=== PATIENT | female | born 1995 | race Caucasian/White ===

== ENCOUNTER 2017-08-13 00:31 | Emergency (ER) | END 2017-08-13 01:30 | disposition home or self-care (01) ==

== ENCOUNTER 2017-09-26 13:42 | Emergency (ER) | END 2017-09-26 14:10 | disposition home or self-care (01) ==

== ENCOUNTER 2017-11-02 14:41 | Outpatient (CLI) | END 2017-11-02 17:05 | disposition home or self-care (01) ==

== ENCOUNTER 2017-12-21 07:29 | Outpatient (CLI) | END 2017-12-21 10:19 | disposition home or self-care (01) ==

== ENCOUNTER 2018-01-23 08:55 | Inpatient (IN) | END 2018-01-26 12:50 | disposition home or self-care (01) | DRG 766 ==

== ENCOUNTER 2018-02-05 23:31 | Emergency (ER) | END 2018-02-06 04:41 | disposition home or self-care (01) ==

== ENCOUNTER 2018-10-16 07:30 | Emergency (ER) | payer OTHER ==
[~2018-10-16] VITALS: Ht 149.9 cm; Wt 83.6 kg
[~2018-10-16 07:30] MED LIST: CEPH-443 PO; PREN1TAB79 PO
[2018-10-16 07:33] VITALS: BP 124/69; PULSE 80; RESP 18; Ht 149.9 cm; Wt 83.6 kg
[2018-10-16] MEDS ORDERED: ONDANSETRON (ODT) 4 MG TAB ODT STA (08:10)
[2018-10-16] MEDS ORDERED: IBUPROFEN 600 MG TAB PO ONE (08:30)
[2018-10-16] MEDS ORDERED: IBUP-1542 PO (10:32)
[2018-10-16] MEDS ORDERED: BACL10TA PO (10:33)
--- NOTE | 2018-10-16 10:40 | ERD ---
ER Documentation Chief Complaint Chief Complaint HEADACHE , NAUSEA , INTERMITTENT VAG BLEED X 1 MONTH HPI Patient is a 23-year-old female presents to the ER for concerns of multiple complaints. Patient states she had a headache for the last month. She states pain comes and goes. Patient gives a pain to be in her frontal and occipital regions. Patient denies falls or trauma. Patient denies any fevers, chills, neck pain, neck stiffness, photophobia, phonophobia or vomiting. Patient does report occasional nausea. Patient also has concerns of intermittent vaginal bleeding. She states she is a bleeding for the last 5 weeks. Patient states the bleeding comes and goes. Patient reports using 2 pads per day. She denies blood clot passage. Patient denies any lightheadedness or dizziness. Patient denies abdominal pain. Patient denies any dysuria, frequency, urgency or hematuria. Patient states she did take Depo-Provera back in February however she did not take any additional hormonal medication since that time. ROS All systems reviewed and are negative except as per history of present illness. Medications Home Meds Active Scripts Baclofen* (Baclofen*) 10 Mg Tablet, 10 MG PO Q8, #15 TAB Prov:GEORGINA NEELY-C 10/16/18 Ibuprofen* (Motrin*) 600 Mg Tab, 600 MG PO Q6, #30 TAB Prov:GEORGINA NEELY-[place] 10/16/18 Cephalexin* (Keflex*) 500 Mg Capsule, 500 MG PO QID for 10 Days, #40 CAP Prov:JESSIE,SILVIA 02/06/18 Vit W-Ca,Fe,FA(<1 mg) ( Vitamins) 1 Each Tablet, 1 EACH PO D AILY, #30 TAB Prov:PASILABAN,KLAR F 09/26/17 Allergies Allergies: Coded Allergies: No Known Allergy (Verified , 02/05/18) PMhx/Soc History of Surgery: Yes ( ) Anesthesia Reaction: No Hx Neurological Disorder: No Hx Respiratory Disorders: Yes (PNA 1 yr ago) Hx Cardiac Disorders: No Hx Psychiatric Problems: No Hx Miscellaneous Medical Probl: No Hx Alcohol Use: No Hx Substance Use: No Hx Tobacco Use: No Smoking Status: Never smoker FmHx Family History: No diabetes Physical Exam Vitals Vital Signs Date Temp Pulse Resp B/P (MAP) Pulse Ox O2 O2 Flow FiO2 Time Delivery Rate 10/16/18 97.8 80 18 124/69 98 07:33 (87) Physical Exam GENERAL: Well-developed, well-nourished female. Appears in no acute distress. Speaking in full sentences. HEAD: Normocephalic, atraumatic. EYES: Pupils are equally reactive bilaterally. EOMs grossly intact. No conjunctival erythema. ENT: Moist mucous membranes. No uvula deviation. No kissing tonsils. NECK: Supple. No meningismus. Normal range of motion of the neck. Tender to palpation of the right trapezius muscle. Pain is reproducible. LUNG: Clear to auscultation bilaterally. No rhonchi, wheezing, rales or coarse breath sounds. HEART: Regular rate and rhythm. No murmurs, rubs or gallops. ABDOMEN: Soft, nontender, and nondistended. Positive bowel sounds in all four quadrants. No rebound tenderness, no guarding. (-) McBurney's point tenderness. No CVA tenderness. EXTREMITIES: Equal pulses bilaterally. No peripheral clubbing, cyanosis or edema. No unilateral leg swelling. NEUROLOGIC: Alert and oriented x3, cooperative. Mood and affect appropriate to situation. Cranial nerves II through XII are grossly intact. Normal speech. Motor exam: 5/5 strength in upper and lower extremities. Sensory exam: Sensation intact to light touch on all four extremities. Cerebellar function exam: Rapid alternating movements intact. No dysmetria on [id number]-[id number] and drxh-by-[id number] test. Steady gait. No pronator drift. 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 SKIN: Normal color. Warm and dry. No rashes or lesions. Result Diagram: 10/16/1814 10/16/18 0814 Results 24 hrs Laboratory Tests Test 10/16/18 08:14 10/16/18 08:27 White Blood Count 5.5 10^3/ul Red Blood Count 5.01 10^6/ul Hemoglobin 15.9 g/dl Hematocrit 45.3 % Mean Corpuscular Volume 90.4 fl Mean Corpuscular Hemoglobin 31.7 pg Mean Corpuscular Hemoglobin Concent 35.1 g/dl Red Cell Distribution Width 12.2 % Platelet Count 217 10^3/UL Mean Platelet Volume 10.3 fl Immature Granulocytes % 0.200 % Neutrophils % 39.5 % Lymphocytes % 45.5 % Monocytes % 9.5 % Eosinophils % 4.0 % Basophils % 1.3 % Nucleated Red Blood Cells % 0.0 /100WBC Immature Granulocytes # 0.010 10^3/ul Neutrophils # 2.2 10^3/ul Lymphocytes # 2.5 10^3/ul Monocytes # 0.5 10^3/ul Eosinophils # 0.2 10^3/ul Basophils # 0.1 10^3/ul Nucleated Red Blood Cells # 0.0 10^3/ul Urine Color YELLOW Urine Clarity CLEAR Urine pH 5.0 Urine Specific [place] 1.023 Urine Ketones NEGATIVE mg/dL Urine Nitrite NEGATIVE mg/dL Urine Bilirubin NEGATIVE mg/dL Urine Urobilinogen NEGATIVE mg/dL Urine Leukocyte Esterase NEGATIVE Rio/ul Urine Hemoglobin NEGATIVE mg/dL Urine Glucose NEGATIVE mg/dL Urine Total Protein NEGATIVE mg/dl Sodium Level 140 mmol/L Potassium Level 4.2 mmol/L Chloride Level 104 mmol/L Carbon Dioxide Level 28 mmol/L Anion Gap 8 Blood Urea Nitrogen 10 mg/dl Creatinine 0.57 mg/dl Est Glomerular Filtrat Rate mL/min > 60 mL/min Glucose Level 104 mg/dl Calcium Level 9.5 mg/dl Total Bilirubin 0.5 mg/dl Direct Bilirubin 0.00 mg/dl Indirect Bilirubin 0.5 mg/dl Aspartate Amino Transf (AST/SGOT) 25 IU/L Alanine Aminotransferase (ALT/SGPT) 42 IU/L Alkaline Phosphatase 66 IU/L Total Protein 7.3 g/dl Albumin 4.5 g/dl Globulin 2.80 g/dl Albumin/Globulin Ratio 1.60 POC Beta HCG, Qualitative NEGATIVE Current Medications Medications Dose Sig/Lilia Start Time Status Last (Trade) Ordered Route PRN Stop Time Admin Dose Reason Admin Ibuprofen 600 mg ONCE ONCE 10/16/18 DC 10/16/18 (Motrin) PO 08:30 08:26 10/16/18 08:31 Ondansetron 4 mg ONCE STAT 10/16/18 DC 10/16/18 HCl (Zofran ODT 08:10 08:26 Odt) 10/16/18 08:11 Procedures/MDM ED COURSE: The patient was stable throughout ED course. I kept the patient and/or family informed of laboratory and diagnostic imaging results throughout the ED course. DIAGNOSTIC IMAGING: Read by radiologist. Patient: FIDELIA MARTINO : 1995 Age: 23 Sex: F [id number] DOS: 10/16/18 0811 Ordering MD: GEORGINA NEELY PA-C Location: FT Room/Bed: PROCEDURE: US Pelvis Transabdominal and Transvaginal. CLINICAL INDICATION: Pelvic pain. Heavy menses. TECHNIQUE: Multiple sonographic images of the pelvis were obtained utilizing doan scale, Doppler and color flow imaging with transabdominal and endovaginal technique. The images were reviewed on a PACS workstation. COMPARISON: None. FINDINGS: Uterus: Size: 9.1 x 4.6 x 5.3 cm. Masses: None. Nabothian cysts: None visualized. Endometrium: Thickness: 4.9 mm. Lesions: 1.7 cm cystic collection containing echogenic debris in the cervix. No increased vascularity surrounding this collection. Right ovary: Size: 3.0 x 1.8 x 2.3 cm. Lesions: Multiple follicles. Vascularity: Normal. Left ovary: Size: 4.4 x 2.0 x 2.5 cm. Lesions: Multiple follicles. Vascularity: Normal. Adnexae: Masses: None. Fluid: Small amount in the cul-de-sac. IMPRESSION: 1.7 cm cystic collection containing echogenic debris in the cervix. This could reflect focal clot and hemorrhage related to menses. Small amount of nonspecific free fluid in the cul-de-sac. This could be physi ologic. If further characterization of the organs of the pelvis is needed MRI should be considered. RPTAT: AA .Marshall Ruth MD, Date Time Electronically viewed and signed by .Marshall Ruth MD, MD on 10/16/2018 09:56 MEDICAL DECISION MAKING: This is a 23-year-old female presents the ER for concerns of intermittent headaches and vaginal bleeding for the last month.. Vital signs were reviewed. Patient was afebrile. Patient is not hypoxic. Patient states her headaches come and go. Patient denies worse headache of life. Patient denied any fevers, neck stiffness, jaw claudication, visual changes or LOC. Full neurological exam was normal. Patient was given ibuprofen and Zofran. Patient reported improvement in symptoms. Low suspicion for intracranial hemorrhage, meningitis, enc ephalitis, CO poisoning, temporal arteritis, benign intracranial hypertension, intracranial mass, glaucoma, preeclampsia. Blood work is obtained given that patient has had intermittent vaginal bleeding for 1 month now. CBC showed no evidence of systemic infection or severe anemia. CMP showed no evidence of electrolyte abnormalities, severe acidosis, alkalosis, renal failure, or liver disease. UA showed no evidence of acute infection or hematuria. Urine test was negative. Pelvic ultrasound showed 1.7 cm cystic collection containing echogenic debris in the cervix. This could reflect focal clot and hemorrhage related to menses. Small amount of nonspecific free fluid in the cul-de-sac. This could be physiologic. If further characterization of the organs of the pelvis is needed MRI should be considered. Patient also has dysfunctional uterine bleeding. Patient advised to follow-up with EDUCATIONAL THERAPIST for further management of her symptoms. Low suspicion for ectopic , threatened , spontaneous , cervical polyp, fibroid, uterine hyperplasia, coagulopathy, thrombocytopenia, polycystic ovarian syndrome. Patient was nontoxic, [id number] prior to discharge. PRESCRIPTIONS: Ibuprofen Baclofen Patient advised not to take back pain when driving or operating any machinery. DISCHARGE: At this time, patient is stable for discharge and outpatient management. I have instructed the patient to follow-up with his/her primary care physician in 1-2 days. I have instructed the patient to promptly return to the ER for any new or worsening symptoms including increased pain, swelling, redness, warmth or fever. The patient and/or family expressed understanding of and agreement with this plan. All questions were answered. Home care instructions were provided. Disclaimer: Inadvertent spelling and grammatical errors are likely due to EHR/dictation software use and do not reflect on the overall quality of patient care. Also, please note that the electronic time recorded on this note does not necessarily reflect the actual time of the patient encounter. Departure Diagnosis: Primary Impression: Dysfunctional uterine bleeding Additional Impressions: Headache Headache type: unspecified Headache chronicity pattern: unspecified pattern Intractability: not intractable Qualified Codes: R51 - Headache Trapezius muscle spasm Condition: Fair Patient Instructions: Self-Care for Headaches, Dysfunctional Uterine Bleeding Referrals: [facility] YOU HAVE RECEIVED A MEDICAL SCREENING EXAM AND THE RESULTS INDICATE THAT YOU DO NOT HAVE A CONDITION THAT REQUIRES URGENT TREATMENT IN THE EMERGENCY DEPARTMENT. FURTHER EVALUATION AND TREATMENT OF YOUR CONDITION CAN WAIT UNTIL YOU ARE SEEN IN YOUR DOCTORS OFFICE WITHIN THE NEXT 1-2 DAYS. IT IS YOUR RESPONSIBILITY TO MAKE AN APPOINTMENT FOR FOLOW-UP CARE. IF YOU HAVE A PRIMARY DOCTOR --you should call your primary doctor and schedule an appointment IF YOU DO NOT HAVE A PRIMARY DOCTOR YOU CAN CALL OUR PHYSICIAN REFERRAL HOTLINE AT IF YOU CAN NOT AFFORD TO SEE A PHYSICIAN YOU CAN CHOSE FROM THE FOLLOWING [facility] [address] [address] [address] [facility] [facility] [address] [facility]. [facility] [address] [facility]. [facility] [address] [facility]. [facility] YOU HAVE RECEIVED A MEDICAL SCREENING EXAM AND THE RESULTS INDICATE THAT YOU DO NOT HAVE A CONDITION THAT REQUIRES URGENT TREATMENT IN THE EMERGENCY DEPARTMENT. FURTHER EVALUATION AND TREATMENT OF YOUR CONDITION CAN WAIT UNTIL YOU ARE SEEN IN YOUR DOCTORS OFFICE WITHIN THE NEXT 1-2 DAYS. IT IS YOUR RESPONSIBILITY TO MAKE AN APPOINTMENT FOR FOLOW-UP CARE. IF YOU HAVE A PRIMARY DOCTOR --you should call your primary doctor and schedule and appointment IF YOU DO NOT HAVE A PRIMARY DOCTOR YOU CAN CALL OUR PHYSICIAN REFERRAL HOTLINE AT . IF YOU CAN NOT AFFORD TO SEE A PHYSICIAN YOU CAN CHOSE FROM THE FOLLOWING [facility] INSTITUTIONS: [facility] [address] [place] [address] [facility] [address] [place] [address] [facility] [address] [place] [address] [facility] URGENT CARE/SPECIALTIES EDUCATIONAL THERAPIST [place] [address] [facility] [address] [place] [address] OFFICE FAX ANDRÉS PAYNE [address] [place] [address] [address]EVES [place] [address] [place] [address] [address] SIL[address], [facility] [address], [address] [facility] [address] [address] [facility] [address] [place] [address] [facility] [address] [place] [address] [address] [facility] [address] - [address] [place], [facility] [address] [facility]. [address], [facility] [address] [address] [place], [place] [address] [facility]. [address], [facility] [address] [address], [facility] [address] [place] [address] Additional Instructions: Follow-up with an EDUCATIONAL THERAPIST for further management of your ongoing vaginal bleeding. Do not take muscle relaxer driving or operating any machinery. Call your primary care doctor TOMORROW for an appointment during the next 1-2 days.See the doctor sooner or return here if your condition worsens before your appointment time. GEORGINA NEELY PA-C October 16, 2018 10:40
== END 2018-10-16 10:37 | disposition home or self-care (01) ==
LOC: FTE 07:30
DX: N93.8 Other specified abnormal uterine and vaginal bleeding (principal); M62.830 Muscle spasm of back; R10.2 Pelvic and perineal pain
CPT/HCPCS: 36415; 76830; 76856; 80053; 81003; 81025; 85025; Z7502; Z7610

== ENCOUNTER 2019-01-23 09:49 | Emergency (ER) | payer OTHER ==
[~2019-01-23] VITALS: Ht 157.5 cm; Wt 82.0 kg
[~2019-01-23 09:49] MED LIST changes: +AMOX1TAB10 PO; +BACL10TA PO; +D-ME473S2 PO; +IBUP-1542 PO; +MED4DP PO
[2019-01-23 09:58] VITALS: BP 154/63; RESP 18; Ht 157.5 cm; Wt 82.0 kg
[2019-01-23] MEDS ORDERED: ALBUTEROL 0.083% (NEB) 2.5 MG/3 ML AMP NEB STA (11:02)
[2019-01-23] MEDS ORDERED: IPRATROPIUM (NEB) 0.5 MG/2.5 ML AMP NEB STA (11:02)
[2019-01-23] MEDS ORDERED: METHYLPREDNISOLONE 125 MG INJ IM STA (11:02)
[2019-01-23 11:46] VITALS: PULSE 121
== END 2019-01-23 13:13 | disposition home or self-care (01) ==
LOC: FTE 09:49
DX: H66.003 Acute suppurative otitis media without spontaneous rupture of ear drum, bilateral (principal)
CPT/HCPCS: 71046; 81025; 94664; 96372; J2930; Z7502; Z7610